=== PATIENT | female | born 1950 | race Caucasian/White ===

== ENCOUNTER → 2016-09-13 | Outpatient (CLI) | payer BC ==
[2013-12-22 13:41] VITALS: BP 146/86
[~2016-09-13] MED LIST: sertraline
--- NOTE | 2016-09-13 14:21 | KCIC ---
PROCEDURE Bilateral digital screening mammogram. HISTORY 66-year-old female presents for screening mammography. TECHNIQUE Full field digital craniocaudal and mediolateral oblique views of both breasts were obtained. Computer-aided detection is applied. COMPARISON There is no prior study for comparison. This exam serves as a new baseline mammogram FINDINGS Breast parenchymal composition: Level B - Scattered fibroglandular densities. There is no suspicious mass, calcification or architectural distortion within either breast. There are asymmetric densities within both breasts which do not persist between projections, consistent with summation artifact. IMPRESSION BI-RADS Category 2: Benign findings. Annual mammography is recommended. This study was interpreted with the benefit of Computerized Aided Detection (CAD). Mammography is not 100% sensitive in detecting breast cancer. Therefore, a self breast exam and a clinical breast exam are very important. A negative mammogram does not negate a clinically suspicious finding and should not result in a delay in biopsying a clinically suspicious abnormality. The patient information was entered into a reminder system with a target date for her next mammogram in year. Electronically signed by: Renetta Shah (September 13, 2016 14:20:14)
--- NOTE | 2016-09-13 14:32 | KCIC ---
PROCEDURE CT maxillofacial without contrast. HISTORY Seasonal allergic rhinitis. Pressure. TECHNIQUE Axial images and coronal and sagittal re-formatted images are provided. One or more of the following individualized dose reduction techniques were utilized for this exam: 1. Automated exposure control. 2. Adjustment of the mA and/or kV according to patient's size. 3. Use of iterative reconstruction technique. COMPARISON None. FINDINGS Right frontal sinus is hypoplastic. Both frontal sinuses are patent. Frontal recesses are patent. Ethmoid air cells are clear. Sphenoid sinuses are clear. Sphenoethmoidal recesses are patent. Small retention cyst is noted in the left maxillary sinus versus minimal lobular mucosal thickening. There is no air-fluid level in the paranasal sinuses. There is no wall sclerosis. Mastoid air cells are clear. There is no maxillofacial fracture. There is nasal septal deviation to the right. There is a bony spur from the nasal septum contacting the right inferior turbinate. Orbital contents are unremarkable. IMPRESSION Minimal mucosal thickening or retention cyst in the left maxillary sinus. Paranasal sinuses otherwise are clear. Electronically signed by: Deo Rausch MD (September 13, 2016 14:30:54)
== END | disposition home or self-care (01) ==
LOC: KCIC CT 13:19
PROVIDERS: ATTEND Family Medicine
DX: Z12.31 Encounter for screening mammogram for malignant neoplasm of breast (principal); J30.2 Other seasonal allergic rhinitis
CPT/HCPCS: 70486; G0202; 77067

== ENCOUNTER → 2018-02-08 | Outpatient (CLI) | payer BC ==
[2013-12-22 13:41] VITALS: BP 146/86
--- NOTE | 2018-02-08 14:29 | KCIC ---
Bilateral digital screening mammograms: Reason for examination: Routine screening. Comparison is made to previous study dated 09/13/2016. Interpretation was made with the benefit of CAD. The skin and nipples show no abnormalities. No abnormal axillary lymph nodes are seen. The breast parenchyma shows scattered fibroglandular density. (Breast density: Category B.) There continue to be some patchy parenchymal asymmetries which are unchanged. There are no new dominant masses, suspicious calcifications or architectural distortions. Impression: No evidence of malignancy. Recommend routine screening. BI-RADS Category 2: Benign. "Our facility is accredited by the [employer] Mammography Program." This patient's information has been entered into a reminder system for the patient to be notified with the results of her examination and a target date for the next mammogram. Electronically signed by: Jennifer Ott MD (02/08/2018 2:26 PM) [id number]
== END | disposition home or self-care (01) ==
LOC: KCIC MAMMO 13:05
PROVIDERS: ATTEND Family Medicine
DX: Z12.31 Encounter for screening mammogram for malignant neoplasm of breast (principal)
CPT/HCPCS: 77067

== ENCOUNTER → 2019-09-04 | Outpatient (CLI) | payer BC ==
[2013-12-22 13:41] VITALS: BP 146/86
--- NOTE | 2019-09-04 12:03 | KCIC ---
CHEST PA LATERAL History: Shortness of breath at rest. Family history of heart disease. Hypertension. Comparison: None. Findings: Frontal and lateral views of the chest were obtained. The cardiomediastinal silhouette is normal. Pulmonary vasculature is normal. The lungs are clear. No pleural effusion or pneumothorax is seen. There is no acute bone abnormality. Upper abdominal surgical clips are present. IMPRESSION: No acute cardiopulmonary process. Electronically signed by: Josué Puga MD (09/04/2019 12:00 PM) [id number]
== END ==
LOC: KCIC 11:16
PROVIDERS: ATTEND Family Medicine
DX: R06.02 Shortness of breath (principal)
CPT/HCPCS: 71046

== ENCOUNTER → 2019-11-07 | Outpatient (CLI) | payer BC ==
[2013-12-22 13:41] VITALS: BP 146/86
--- NOTE | 2019-11-07 17:03 | KCIC ---
Three-view left foot study Clinical indications: Left foot edema. Lateral left foot pain FINDINGS: No acute fracture or dislocation or lytic process is seen. No periosteal reaction is evident. Calcific tendinitis of the distal Achilles tendon is seen at the attachment to the posterior aspect of the calcaneus. IMPRESSION: No acute fracture. Electronically signed by: Andrew Flowers MD (11/07/2019 5:00 PM) [id number]
== END | disposition home or self-care (01) ==
LOC: KCIC 14:06
PROVIDERS: ATTEND Family Medicine
DX: M76.62 Achilles tendinitis, left leg (principal); R60.0 Localized edema
CPT/HCPCS: 73630